=== PATIENT | female | born 1985 | race African-American/Black ===

== ENCOUNTER 2019-04-16 20:22 | Emergency (ER) | payer OTHER ==
[~2019-04-16] VITALS: Ht 167.6 cm; Wt 75.0 kg
[2019-04-16] MEDS ORDERED: ALPRAZOLAM 0.25 MG TABLET PO ONE (23:00)
[2019-04-17 00:05] VITALS: BP 142/97
== END 2019-04-17 00:15 | disposition home or self-care (01) ==
LOC: ER 20:26
DX: F41.1 Generalized anxiety disorder (principal); F41.0 Panic disorder [episodic paroxysmal anxiety]; I10 Essential (primary) hypertension
CPT/HCPCS: 99284